=== PATIENT | male | born 2000 | race Caucasian/White ===

== ENCOUNTER 2022-02-07 22:22 | Emergency (ER) | payer OTHER, SELFPAY ==
[2022-02-07 22:22] VITALS: BP 139/97; PULSE 104; RESP 16; TEMP 36.8; O2SAT 98; BMI 20.1
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
[2022-02-07] MEDS: Rabies Vaccine,Human Diploid 2.5 UNITS Vial IM (23:31)
[2022-02-07 23:36] VITALS: RESP 16
== END 2022-02-07 23:37 | disposition home or self-care (01) ==
PROVIDERS: Emergency Provider Emergency Medicine; Visit Provider Emergency Medicine
DX: S10.87XA Other superficial bite of other specified part of neck, initial encounter (principal); W55.81XA Bitten by other mammals, initial encounter; F98.8 Other specified behavioral and emotional disorders with onset usually occurring in childhood and adolescence; Z20.3 Contact with and (suspected) exposure to rabies
CPT/HCPCS: 90675; 96372; 99281

== ENCOUNTER 2022-02-10 21:36 | Outpatient (CLI) | payer OTHER, SELFPAY ==
[2022-02-10 21:40] VITALS: BP 119/74; PULSE 74; RESP 17; TEMP 36.8; O2SAT 98; BMI 20.9
[2022-02-10] MEDS: Rabies Vaccine,Human Diploid 2.5 UNITS Vial IM (22:08)
== END 2022-02-10 22:30 | disposition home or self-care (01) ==
LOC: ED 22:31
DX: Z23 Encounter for immunization (principal)
CPT/HCPCS: 90675; 96372

== ENCOUNTER 2023-05-18 19:29 | Emergency (ER) | payer OTHER, SELFPAY ==
[2023-05-18 19:30] VITALS: BP 120/65; PULSE 124; RESP 20; TEMP 36.3; O2SAT 97; BMI 22.6
--- NOTE | 2023-05-18 19:52 | EX.ED.DYSGE1 ---
HPI <ROGE Berg - Last Filed: 05/18/23 21:01> History of Present Illness Chief Complaint: Cold Sx Narrative Narrative: Patient presenting today due to cold-like symptoms that started this morning. He reports that he has had fever, nasal congestion, sore throat, body aches, and a headache. He went to urgent care this morning where he was tested for COVID, flu, and strep throat which were all negative. He reports that him and his girlfriend live together in a dorm room and she has been checking his oxygen saturation with a pulse ox and it seemed to drop into the high 80s afternoon. He reports that his headache has gotten more severe throughout the day and he is having some photophobia. His girlfriend was sick last week with similar symptoms. He reports a past medical history of costochondritis. He denies any abdominal pain, nausea, vomiting, diarrhea. He reports that he is tolerating food and fluids. [facility] <ROGE Berg - Last Filed: 05/18/23 21:01> [facility] Medical History (Updated 05/18/23 @ 20:50 by ROGE Berg) ADD (attention deficit disorder) Asthma Home Medications albuterol sulfate 90 mcg/actuation aerosol inhaler 2 puff inhalation Q4H PRN shortness of breath or wheezing 05/18/23 [History Last Taken 05/18/23 19:30] fluticasone furoate 100 mcg-vilanterol 25 mcg/dose inhalation powder 1 inh inhalation Q24H ASTHMA 05/18/23 [History Last Taken Unknown] sertraline 50 mg tablet 50 mg PO Q24H DAILY 05/18/23 [History Last Taken Unknown] Allergy/AdvReac Type Severity Reaction Status Date / Time No Known Allergies Allergy Verified 05/18/23 19:30 Surgical History [place] teeth removed Social History Smoking Status: Never smoker ROS <ROGE Berg - Last Filed: 05/18/23 21:01> ROS ED Constitutional Constitutional ED: Reports fever(s) Eyes Eyes: Denies discharge from eye(s) ENT ENT ED: Reports rhinorrhea and sore throat; Denies discharge from eye(s) Cardiovascular Cardiovascular: Denies chest pain or palpitations Respiratory/Chest Respiratory/Chest: Denies cough, dyspnea or dyspnea on exertion Gastrointestinal Gastrointestinal: Denies abdominal pain, diarrhea, nausea or vomiting Musculoskeletal Musculoskeletal: Reports myalgias Integumentary Denies rash Neurologic Neurologic: Reports headache(s); Denies paresthesias or weakness EXAM <Sue Gibson PA - Last Filed: 05/18/23 21:01> Physical Exam Const Vital Signs: 05/18/23 19:30 05/18/23 19:41 05/18/23 20:12 Temperature 97.3 F L Temperature Source Temporal Pulse Rate 124 H 109 H Respiratory Rate 20 H 16 Respiratory Effort Normal Respiratory Pattern Normal Blood Pressure 120/65 Blood Pressure Mean 83 Pulse Ox 97 97 Oxygen Delivery Method Room Air 05/18/23 21:01 Temperature Temperature Source Pulse Rate 93 Respiratory Rate 16 Respiratory Effort Respiratory Pattern Blood Pressure Blood Pressure Mean Pulse Ox 98 Oxygen Delivery Method Positive well nourished, well developed and no apparent distress General Appearance ED: well developed HEENT Reports normocephalic, head/scalp atraumatic and TM's clear Tympanic Membrane ED: Yes TM's clear bilateral Mouth ED: Yes moist mucous membranes normal Throat: posterior oropharynx normal, tonsils normal and uvula midline Eyes PERRL and EOMs intact bilaterally Neck full ROM and supple Neck Narrative: No signs of meningismus. Chest Wall inspection of chest normal Resp normal respiratory effort and clear to auscultation bilaterally Cardio regular rate and regular rhythm GI soft to palpation, non-tender, non-distended and no masses Back/Spine normal ROM and normal to inspection Extremity normal to inspection and full ROM Neuro oriented x3, CN's II-XII intact bilaterally, moves all extremities, no focal motor deficits and no sensory deficits noted Sensorium / Orientation: awake and alert Psych mental status grossly normal and thought process normal Skin no rashes or lesions noted and no wounds <Dr. Jim Correa DO - Last Filed: 05/18/23 23:52> Physical Exam Const Vital Signs: 05/18/23 19:30 05/18/23 19:41 05/18/23 20:12 Temperature 97.3 F L Temperature Source Temporal Pulse Rate 124 H 109 H Respiratory Rate 20 H 16 Respiratory Effort Normal Respiratory Pattern Normal Blood Pressure 120/65 Blood Pressure Mean 83 Pulse Ox 97 97 Oxygen Delivery Method Room Air 05/18/23 21:01 Temperature Temperature Source Pulse Rate 93 Respiratory Rate 16 Respiratory Effort Respiratory Pattern Blood Pressure Blood Pressure Mean Pulse Ox 98 Oxygen Delivery Method [facility] <ROGE Berg - Last Filed: 05/18/23 21:01> [facility] Narrative Medical decision making narrative: Patient presenting with cold-like symptoms that he has had since this morning. He has already been tested for COVID, flu, and strep today at the urgent care which were all negative. Symptoms are consistent with viral illness, patient's girlfriend was sick last week with similar symptoms. Patient is tachycardic here at 124 bpm, oxygen saturation is 97% on room air, he is afebrile. He will be given Toradol and IV fluids for his headache. On reexamination he reports that he is feeling much better. He can take [id number] cold and flu medications as needed and has been given supportive care measures. He will be discharged home in stable condition and is comfortable with plan. He is to follow-up with his PCP. <Dr. Jim Correa, DO - Last Filed: 05/18/23 23:52> [facility] Treatment and Re-Evaluation :: I have personally performed a face to face assessment of the patient and have reviewed the VERONICA Note. I performed a substantive portion of the visit including all aspects of the following. My whitehead findings include: History: Patient presents with fever that began today. Patient states it came on gradually. Patient states has been constant throughout the day today. Patient did not take his temperature but has felt warm. Patient has a pulse oximeter at home and was using that today. Patient states he noted that his pulse oximeter dropped to 88%. Patient admits to some general myalgias and headache. Patient also admits to some sinus pressure. Patient admits to some chest pain. Patient denies any nausea or vomiting but admits to some diarrhea. Patient denies any shortness of breath or cough. Exam: Vital signs are stable except for a tachycardia of 124. Patient is not hypoxic. Patient's pulse oximeter is 98% on room air. Patient is afebrile here. Patient is in no acute distress. Oral mucosa is pink and moist. Neck is supple. Trachea is midline. There is no JVD. Heart was regular and tachycardic. Lungs are clear and equal bilateral. Abdomen is soft. Bowel sounds are normal. There is no tenderness. Cranial nerves II through XII are intact. There are no focal motor or sensory deficits noted. Medical Decision Making: Patient was advised that this is most likely a viral illness. Patient was given IV fluids and Toradol here. Patient was feeling better after this. Patient was instructed to continue Tylenol or ibuprofen as needed for any fevers. Patient was instructed to drink plenty of fluids. Patient was instructed to follow-up with his primary care physician in 5 to 7 days. Patient and family understood and were agreeable with the plan. All questions were answered. Discharge Plan Triage Chief Complaint: Cold Sx ED Midlevel Provider: Sue Gibson ED Provider: Jim Correa Dx/Rx/DC Orders Clinical Impression: Headache, Viral illness Instructions: ED Viral Syndrome (Adult) Prescriptions: No Action albuterol sulfate 90 mcg/actuation HFA aerosol inhaler 2 puff INHALATION Q4H PRN (Reason: shortness of breath or wheezing) Patient Comments: INHALE 2 (TWO) PUFFS EVERY 4 TO 6 HOURS NEEDED FOR WHEEZING . sertraline 50 mg tablet 50 mg PO Q24H fluticasone furoate-vilanterol 100-25 mcg/dose blister with device 1 inh INHALATION Q24H Patient Comments: INHALE 1 PUFF DIRECTED ONCE A DAY RINSE MOUTH AFTER USE Referrals: NOT,DEFINED [Non-Staff] - Activity Restrictions/Additional Instructions: Stay well-hydrated, alternate Tylenol and ibuprofen for your fever as needed. You could also take [id number] cold and flu medications. Return for any worsening of your symptoms. Disposition Disposition: Home, Self Care Discharge Date/Time: 05/18/23 21:16
[2023-05-18] MEDS: 0.9% Normal Saline (1000mL) 1,000 ML 999 ML IV (20:03)
[2023-05-18] MEDS: Ketorolac 15 MG/ML Vial IV (20:03)
[2023-05-18 20:12] VITALS: PULSE 109; RESP 16; O2SAT 97
[2023-05-18 21:01] VITALS: PULSE 93; RESP 16; O2SAT 98
== END 2023-05-18 21:16 | disposition home or self-care (01) ==
PROVIDERS: Emergency Provider Emergency Medicine; Visit Provider Emergency Medicine
DX: B34.9 Viral infection, unspecified (principal); R51.9 Headache, unspecified; J45.909 Unspecified asthma, uncomplicated; Z79.51 Long term (current) use of inhaled steroids
CPT/HCPCS: 96361; 96374; 99283